=== PATIENT | female | born 1940 | race Caucasian/White ===

== ENCOUNTER 2022-02-16 09:56 | Inpatient (IN) | payer MEDICARE ==
[~2022-02-16] VITALS: Ht 157 cm; Wt 83.9 kg
--- NOTE | 2022-02-16 10:10 | ED Respiratory ---
General Stated Complaint: COUGH; LOW O2 Source: patient, family, EMS Exam Limitations: clinical condition (dementia) History of Present Illness Date Seen by Provider: Feb 16, 2022 Time Seen by Provider: 09:59 Initial Comments 81-year-old female with past medical history of advanced dementia and hypertension coming in via EMS from the urgent care due to concerns for low oxygen. Per her son who essentially adds to the entirety of her history due to her dementia, she started to look short of breath yesterday with developing cough and congestion. No fever that he knows of. She has denied pain anywhere, vomiting, diarrhea, weakness, numbness, or any other concerns. She has been ambulatory. Eating and drinking somewhat less than usual. Denies any heart disease, lung disease, does not smoke. They report her oxygen was around 86 to 88% on room air and they placed her on 2 L oxygen. Otherwise denying any other acute complaints. Allergies and Home Medications Allergies Coded Allergies: No Known Drug Allergies (Unverified , 02/16/22) Patient Home Medication List Home Medication List Reviewed: Yes Review of Systems Review of Systems Constitutional: No fever EENTM: nose congestion Respiratory: cough, short of breath Cardiovascular: No chest pain Gastrointestinal: No abdominal pain Genitourinary: no symptoms reported Musculoskeletal: no symptoms reported Skin: no symptoms reported Psychiatric/Neurological: No Symptoms Reported Hematologic/Lymphatic: No Symptoms Reported Immunological/Allergic: no symptoms reported All Other Systems Reviewed Negative Unless Noted: Yes Past Jhajyik-Iyzyrb-Vpwjgq Hx Patient Social History Tobacco Use?: No Substance use?: No Alcohol Use?: No Past Medical History Surgeries: No Physical Exam Vital Signs - First Documented 02/16/22 09:56 Temp 36.2 Pulse 91 Resp 18 B/P (MAP) 119/62 (81) Pulse Ox 97 O2 Delivery Room Air Capillary Refill : Height: '" Weight: lbs. oz. kg; BMI Method: General Appearance: WD/WN, no apparent distress Eyes: Bilateral Eye Normal Inspection HEENT: PERRL/EOMI, normal ENT inspection, pharynx normal Neck: non-tender, full range of motion, supple, normal inspection Respiratory: chest non-tender, lungs clear, normal breath sounds, no respiratory distress, no accessory muscle use Cardiovascular: regular rate, rhythm, no edema, no murmur Gastrointestinal: normal bowel sounds, non tender, soft; No distended, No guarding, No rebound Extremities: normal range of motion, non-tender, normal inspection, no pedal edema, no calf tenderness, normal capillary refill Neurologic/Psychiatric: no motor/sensory deficits, alert, normal mood/affect, other (Oriented to person alone) Skin: normal color, warm/dry Lymphatic: no adenopathy Progress/Results/Core Measures Suspected Sepsis SIRS Temperature: Pulse: Respiratory Rate: Laboratory Tests 02/16/22 10:01: White Blood Count 11.7H Blood Pressure / Mean: Laboratory Tests 02/16/22 10:01: Creatinine 1.53H, INR Comment 1.1, Platelet Count 110L, Total Bilirubin 0.7 Results/Orders Lab Results Laboratory Tests Test 02/16/22 10:00 02/16/22 10:01 Range/Units Influenza Type A (RT-PCR) Not Detected Not Detecte Influenza Type B (RT-PCR) Not Detected Not Detecte SARS-CoV-2 RNA (RT-PCR) Not Detected Not Detecte White Blood Count 11.7 H 4.3-11.0 10^3/uL Red Blood Count 3.84 L 4.30-5.52 10^6/uL Hemoglobin 11.7 L 13.3-17.7 g/dL Hematocrit 36 L 40-54 % Mean Corpuscular Volume 95 80-99 fL Mean Corpuscular Hemoglobin 31 25-34 pg Mean Corpuscular Hemoglobin Concent 32 32-36 g/dL Red Cell Distribution Width 13.7 10.0-14.5 % Platelet Count 110 L 130-400 10^3/uL Mean Platelet Volume 12.1 9.0-12.2 fL Immature Granulocyte % (Auto) 0 % Neutrophils (%) (Auto) 86 H 42-75 % Lymphocytes (%) (Auto) 7 L 12-44 % Monocytes (%) (Auto) 6 0-12 % Eosinophils (%) (Auto) 0 0-10 % Basophils (%) (Auto) 0 0-10 % Neutrophils # (Auto) 10.1 H 1.8-7.8 10^3/uL Lymphocytes # (Auto) 0.8 L 1.0-4.0 10^3/uL Monocytes # (Auto) 0.6 0.0-1.0 10^3/uL Eosinophils # (Auto) 0.1 0.0-0.3 10^3/uL Basophils # (Auto) 0.0 0.0-0.1 10^3/uL Immature Granulocyte # (Auto) 0.0 0.0-0.1 10^3/uL Neutrophils % (Manual) 82 % Lymphocytes % (Manual) 9 % Monocytes % (Manual) 7 % Band Neutrophils 2 % Platelet Estimate DECREASED Percent Immature Platelet Fraction 13.3 H 0.0-7.6 % Blood Morphology Comment NORMAL Prothrombin Time 14.9 H 12.2-14.7 SEC INR Comment 1.1 0.8-1.4 Activated Partial Thromboplast Time 28 24-35 SEC Sodium Level 142 135-145 MMOL/L Potassium Level 3.9 3.6-5.0 MMOL/L Chloride Level 104 98-107 MMOL/L Carbon Dioxide Level 26 21-32 MMOL/L Anion Gap 12 5-14 MMOL/L Blood Urea Nitrogen 17 7-18 MG/DL Creatinine 1.53 H 0.60-1.30 MG/DL Estimat Glomerular Filtration Rate 45 BUN/Creatinine Ratio 11 Glucose Level 172 H 70-105 MG/DL Calcium Level 9.4 8.5-10.1 MG/DL Corrected Calcium 9.9 8.5-10.1 MG/DL Magnesium Level 2.2 1.6-2.4 MG/DL Total Bilirubin 0.7 0.1-1.0 MG/DL Aspartate Amino Transf (AST/SGOT) 14 5-34 U/L Alanine Aminotransferase (ALT/SGPT) 5 0-55 U/L Alkaline Phosphatase 86 40-136 U/L Troponin I 0.76 *H <0.30 NG/ML Pro-B-Type Natriuretic Peptide 4546.0 H <450.0 PG/ML Total Protein 6.4 6.4-8.2 GM/DL Albumin 3.4 3.2-4.5 GM/DL My Orders Orders - JEMAL IVAN MD Cbc With Automated Diff (02/16/22 10:06) Comprehensive Metabolic Panel (02/16/22 10:06) Magnesium (02/16/22 10:06) Protime With Inr (02/16/22 10:06) Partial Thromboplastin Time (02/16/22 10:06) Influenza A And B By Pcr (02/16/22 10:06) Probnp Fs (02/16/22 10:06) Troponin I Fs (02/16/22 10:06) Chest 1 View Ap/Pa Only (02/16/22 10:06) Covid 19 Inhouse Test (02/16/22 10:06) Ed Iv/Invasive Line Start (02/16/22 10:06) Ekg Tracing (02/16/22 10:06) O2 (02/16/22 10:06) Manual Differential (02/16/22 10:01) Ns Iv 1000 Ml (Sodium Chloride 0.9%) (02/16/22 11:00) Ceftriaxone 1 Gm Pre-Mix (Rocephin 1 Gm (02/16/22 11:00) Doxycycline Hyclate Tablet (Vibramycin T (02/16/22 10:48) Aspirin Chewable Tablet (Baby Aspirin Ch (02/16/22 11:00) Vital Signs/I&O 02/16/22 09:56 Temp 36.2 Pulse 91 Resp 18 B/P (MAP) 119/62 (81) Pulse Ox 97 O2 Delivery Room Air Capillary Refill : Progress Note : Progress Note 81-year-old female with above history coming in due to shortness of breath and cough. Patient was hypoxic on presentation when she was placed on nasal cannula. EKG without acute ischemic changes. An IV was placed and basic labs were obtained and were significant for slightly elevated troponin. Likely is a type II NSTEMI in setting of her hypoxia. Chest x-ray with likely right lower lobe pneumonia. Patient will be admitted to Dr. Esquivel under inpatient status for further evaluation and management. I also contacted Dr. Camacho for consulta tion ECG Initial ECG Impression Date: Feb 16, 2022 Initial ECG Impression Time: 10:07 Initial ECG Rate: 88 Initial ECG Rhythm: Normal Sinus Comment Narrow QRS, normal axis, no significant ST changes Diagnostic Imaging Diagonstic Imaging: Xray (chest) Comments [facility], [place] NAME: WANDER LOPEZ I [facility] REC#: [id number] PT STATUS: REG ER : 1940 PHYSICIAN: JEMAL IVAN MD ADMIT DATE: 02/16/22/ER FS Signed Date of Exam:02/16/22 CHEST 1 VIEW AP/PA ONLY EXAM: CHEST 1 VIEW AP/PA ONLY INDICATION: Shortness of breath. COMPARISON: None. FINDINGS: Normal heart size and central pulmonary vascularity. No pleural effusion or pneumothorax. Airspace opacity in the right lung base. No acute osseous findings. IMPRESSION: Atelectasis or infiltrate in the right lung base laterally. Recommend follow-up to resolution. Dictated by: Dictated on workstation # [id number] Dict: 02/16/22 1026 Trans: 02/16/22 1036 [facility] [id number] Interpreted by: ALMA DELIA PRUETT MD Electronically signed by: ALMA DELIA PRUETT MD 02/16/22 1036 Departure Impression Primary Impression: Pneumonia Qualified Codes: J18.9 - Pneumonia, unspecified organism Additional Impressions: Respiratory failure Qualified Codes: J96.01 - Acute respiratory failure with hypoxia NSTEMI (non-ST elevated myocardial infarction) Disposition: 30 STILL A PATIENT Condition: Stable Admissions Decision to Admit Reason: Admit from ER (General) Decision to Admit/Date: Feb 16, 2022 Time/Decision to Admit Time: 10:40 Transfer Method of Transfer: EMS JEMAL IVAN MD Feb 16, 2022 10:10
[2022-02-16 10:20] LABS: BASOPHILS % (AUTO) 0 % (0-10); EOSINOPHILS # (AUTO) 0.1 10^3/uL (0.0-0.3); EOSINOPHILS % (AUTO) 0 % (0-10); HEMATOCRIT 36 % (40-54); HEMOGLOBIN 11.7 g/dL (13.3-17.7); LYMPHOCYTES # (AUTO) 0.8 10^3/uL (1.0-4.0); LYMPHOCYTES % (AUTO) 7 % (12-44); MEAN CORPUSCULAR HEMOGLOBIN 31 pg (25-34); MEAN CORPUSCULAR HGB CONC 32 g/dL (32-36); MEAN CORPUSCULAR VOLUME 95 fL (80-99); MEAN PLATELET VOLUME 12.1 fL (9.0-12.2); MONOCYTES # (AUTO) 0.6 10^3/uL (0.0-1.0); MONOCYTES % (AUTO) 6 % (0-12); NEUTROPHILS # (AUTO) 10.1 10^3/uL (1.8-7.8); NEUTROPHILS % (AUTO) 86 % (42-75); PLATELET COUNT 110 10^3/uL (130-400); WHITE BLOOD COUNT 11.7 10^3/uL (4.3-11.0)
[2022-02-16 10:29] LABS: INR 1.1 (0.8-1.4); PROTHROMBIN TIME PATIENT 14.9 SEC (12.2-14.7)
--- NOTE | 2022-02-16 10:32 | Diagnostic Imaging Report ---
EXAM: CHEST 1 VIEW AP/PA ONLY INDICATION: Shortness of breath. COMPARISON: None. FINDINGS: Normal heart size and central pulmonary vascularity. No pleural effusion or pneumothorax. Airspace opacity in the right lung base. No acute osseous findings. IMPRESSION: Atelectasis or infiltrate in the right lung base laterally. Recommend follow-up to resolution. Dictated by: Dictated on workstation # [id number]
[2022-02-16 10:40] LABS: BILIRUBIN,TOTAL 0.7 MG/DL (0.1-1.0); CALCIUM 9.4 MG/DL (8.5-10.1); CREATININE SERUM 1.53 MG/DL (0.60-1.30); MAGNESIUM 2.2 MG/DL (1.6-2.4); POTASSIUM 3.9 MMOL/L (3.6-5.0)
[2022-02-16 10:41] LABS: ALBUMIN 3.4 GM/DL (3.2-4.5); TOTAL PROTEIN 6.4 GM/DL (6.4-8.2)
[2022-02-16 10:44] LABS: BAND NEUTROPHILS 2 %; LYMPHOCYTES % (MANUAL) 9 %; MONOCYTES % (MANUAL) 7 %; NEUTROPHILS % (MANUAL) 82 %
[2022-02-16 10:47] LABS: PLATELET ESTIMATE DECREASED; RBC MORPH NORMAL
[2022-02-16] MEDS ORDERED: DOXYCYCLINE 100 MG (VIBRAMYCIN) TABLET PO STA (10:48)
[2022-02-16] MEDS ORDERED: cefTRIAXone 1 GM PRE-MIX 50 ML IV ONE (11:00)
[2022-02-16] MEDS ORDERED: ASPIRIN 81 MG CHEW (CHILDREN'S ASA) PO ONE (11:00)
[2022-02-16] MEDS ORDERED: NS IV 1000 ML 1,000 ML IV SCH (11:00)
[2022-02-16] MEDS ORDERED: ONDANSETRON 4 MG/2 ML (SDV) Z0FRAN IV PRN (13:00)
[2022-02-16] MEDS ORDERED: ACETAMINOPHEN 325 MG TABLET PO PRN (13:00)
[2022-02-16] MEDS ORDERED: AZITHROMYCIN INJECTION 500 MG in NS (IVPB) 250 ML IV ONE (13:00)
[2022-02-16] MEDS ORDERED: polyethylene glycoL POWDER 17 GM (MIRALAX) PACK PO PRN (13:00)
[2022-02-16] MEDS ORDERED: ONDANSETRON 4 MG (ZOFRAN) ORAL DISSOLVE TAB PO PRN (13:00)
[2022-02-16] MEDS ORDERED: ANTACID SUSP 30 ML UDC (MYLANTA) PO PRN (13:00)
[2022-02-16] MEDS ORDERED: diphenhydrAMINE 25 MG TAB (BENADRYL) PO PRN (13:00)
[2022-02-16] MEDS ORDERED: MELATONIN 3 MG TABLET PO PRN (13:00)
[2022-02-16] MEDS ORDERED: morphine INJ 4 MG/ML 1 ML (VIAL/SYRINGE) IV PRN (13:00)
[2022-02-16] MEDS ORDERED: cefTRIAXone 1 GM PRE-MIX 50 ML IV SCH (13:00)
[2022-02-16] MEDS ORDERED: LORazepam INJ 2 MG/ML (ATIVAN) VIAL IVP PRN (13:00)
[2022-02-16] MEDS ORDERED: BISACODYL 10 MG SUPP (DULCOLAX) PR PRN (13:00)
[2022-02-16] MEDS ORDERED: LORazepam 0.5 MG (ATIVAN) TABLET PO PRN (13:00)
[2022-02-16] MEDS ORDERED: diphenhydrAMINE 50 MG/ML INJ (BENADRYL) IVP PRN (13:00)
[2022-02-16] MEDS: NS IV 1000 ML 1,000 ML IV SCH (14:18)
[2022-02-16] MEDS: ENOXAPARIN 80 MG/0.8 ML (LOVENOX) SYR SC SCH (14:18)
[2022-02-16 14:34] VITALS: BP 143/64
--- NOTE | 2022-02-16 14:59 | Consultation-Cardiology ---
HPI-Cardiology Cardiology Consultation: Date of Consultation 02/16/22 Time Seen by a Provider: 13:45 Date of Admission Attending Physician Abhishek Diaz MD Admitting Physician Admitting Physician: Crystal Patel DO Attending Physician: Crystal Patel DO Consulting Physician RUT BURNETTE MD, MA, FACP, FACC, FSCAI, CCDS Physician requesting Card consult: Dr Patel HPI: Chief Complaint: Reason for Card consult: Elevated troponin 81 yo woman who suffers from Alzheimer's and who resides at home with her ibeth benavidez. Her family had noted increase cough and gen malaise and shortness of breath and low oxygen sats (in the 80s). The brought her to the ER. She was diagnosed with pneumonia. She was found to have mildly elevated troponin. Direct communication with her is difficult. She does not report cp or shortness of breath. Family has not noted any syncope or swelling or n/v. Review of Systems-Cardiology Review of Systems Constitutional: other (ROS cannot be obtained from the patient. To the extent it could be obtained from the family is described above under HPI) All Other Systems Reviewed Negative Unless Noted: Yes SSS-Picpcr-Joyafb Hx Patient Social History Have you traveled recently?: No Alcohol Use?: No Pt feels they are or have been: No Past Medical History PMH As described under Assessment. Family Medical History Family Medical History: No [facility] h/o early CAD Allergies and Home Medications Allergies Coded Allergies: No Known Drug Allergies (Unverified , 02/16/22) Patient Home Medication List Home Medication List Reviewed: Yes Physical Exam-Cardiology Physical Exam Vital Signs/I&O 02/16/22 02/16/22 02/16/22 02/16/22 09:56 11:34 13:55 14:34 Temp 36.2 36.2 36.0 Pulse 91 78 76 81 Resp 18 18 16 B/P (MAP) 119/62 (81) 136/62 143/64 (90) Pulse Ox 97 96 90 O2 Delivery Room Air Nasal Cannula Nasal Cannula O2 Flow Rate 2.50 2.50 Capillary Refill : Less Than 3 Seconds Constitutional: No AAO x 3; well-developed, well-nourished HEENT: EOMI; No xanthelasmas are seen Neck: carotid pulses are 2 + bilaterally, with good upstrokes Respiratory: No accessory muscle use; other (fair to good air entry, diminshed at the bases, more so on the R base; R basal coarse crackles) Cardiovascular: regular rate-rhythm, S1 and S2, systolic murmur (soft SAUL at card base) Gastrointestinal: No tender; soft; No guarding, No rebound; audible bowel sounds Extremities: No clubbing, No cyanosis, No significant edema Neurologic/Psychiatric: No oriented x 3; other (moves all limb equally) Skin: warm/dry; No cyanosis, No rash on exposed areas, No ulcerations on exposed areas Lymphatic: no adenopathy Data Review Labs Laboratory Tests 02/16/22 10:00: Influenza Type A (RT-PCR) Not Detected, Influenza Type B (RT-PCR) Not Detected, SARS-CoV-2 RNA (RT-PCR) Not Detected 02/16/22 10:01: White Blood Count 11.7H, Red Blood Count 3.84L, Hemoglobin 11.7L, Hematocrit 36L , Mean Corpuscular Volume 95, Mean Corpuscular Hemoglobin 31, Mean Corpuscular Hemoglobin Concent 32, Red Cell Distribution Width 13.7, Platelet Count 110L, Mean Platelet Volume 12.1, Immature Granulocyte % (Auto) 0, Neutrophils (%) (Auto) 86H, Lymphocytes (%) (Auto) 7L, Monocytes (%) (Auto) 6, Eosinophils (%) (Auto) 0, Basophils (%) (Auto) 0, Neutrophils # (Auto) 10.1H, Lymphocytes # (Auto) 0.8L, Monocytes # (Auto) 0.6, Eosinophils # (Auto) 0.1, Basophils # (Auto) 0.0, Immature Granulocyte # (Auto) 0.0, Neutrophils % (Manual) 82, Lymphocytes % (Manual) 9, Monocytes % (Manual) 7, Band Neutrophils 2, Platelet Estimate DECREASED, Percent Immature Platelet Fraction 13.3H, Blood Morphology Comment NORMAL, Prothrombin Time 14.9H, INR Comment 1.1, Activated Partial Thromboplast Time 28, Sodium Level 142, Potassium Level 3.9, Chloride Level 104, Carbon Dioxide Level 26, Anion Gap 12, Blood Urea Nitrogen 17, Creatinine 1.53H, Estimat Glomerular Filtration Rate 45, BUN/Creatinine Ratio 11, Glucose Level 172H, Calcium Level 9.4, Corrected Calcium 9.9, Magnesium Level 2.2, Total Bilirubin 0.7, Aspartate Amino Transf (AST/SGOT) 14, Alanine Aminotransferase (ALT/SGPT) 5, Alkaline Phosphatase 86, Troponin I 0.76*H, Pro-B-Type Natriuretic Peptide 4546.0H, Total Protein 6.4, Albumin 3.4 Laboratory Tests 02/16/22 10:01 A/P-Cardiology Assessment/Admission Diagnosis Ac resp failure and hypoxia due to RLL Mild troponin elevation due to type 2 NJ due to hypoxia Alzheimer's dementia Discussion and Recomendations * Supple oxygen * Add ASA and BB to regimen * Echo * Monitor labs * Dr Patel managing pneumonia and resp failure RUT BURNETTE MD FACP [facility] CCDS Feb 16, 2022 14:59
--- NOTE | 2022-02-16 15:47 | History & Physical-Hospitalist ---
History of Present Illness HPI/Chief Complaint CC: PNA with NSTEMI HPI: This is an 81yoWF with severe dementia who presents to [facility] following ER visit from [facility] and found to have PNA and NSTEMI. Dr Camacho consulted. Patient has severe dementia and cannot even converse and oriented x 0. Living will discussed with daughter at bedside and she called her brother who is "in charge of all of that" and he confirmed she remains a full code even though she has end stage dementia. Source: family, RN/MD Exam Limitations: clinical condition Date Seen 02/16/22 Time Seen by a Provider: 17:00 Attending Physician Abhishek Diaz MD PCP Admitting Physician: Crystal Patel DO Attending Physician: Crystal Patel DO Referring Physician Date of Admission Feb 16, 2022 at 12:45 Home Medications & Allergies Home Medications Reviewed patient Home Medication Reconciliation performed by pharmacy medication reconciliations gyroscopic engineering technician and/or nursing. Patients Allergies have been reviewed. Allergies Allergies Coded Allergies No Known Drug Allergies (Lakkywhbcq70/25/22) Past Bnyvavf-Frswvm-Zljljz Hx Patient Social History Marrital Status: single Employed/Student: retired Tobacco Use?: No Smoking Status: Unknown if Ever Smoked Use of E-Cig and/or Vaping dev: No Substance use?: No Alcohol Use?: No Pt feels they are or have been: No Immunizations Up To Date First/Initial COVID19 Vaccinat: Yes Current Status Advance Directives: No Communicates: Verbally Primary Language: Bahamian Preferred Spoken Language: Bahamian Is interpretation needed?: No Sensory deficits: Vision impairment, Hearing impairment Past Medical History Hypertension Dementia Review of Systems Constitutional: see HPI Physical Exam Physical Exam Vital Signs Vital Signs - First Documented 02/16/22 02/16/22 09:56 11:34 Temp 36.2 Pulse 91 Resp 18 B/P (MAP) 119/62 (81) Pulse Ox 97 O2 Delivery Room Air O2 Flow Rate 2.50 Capillary Refill : Less Than 3 Seconds Height, Weight, BMI Height: '" Weight: lbs. oz. kg; 34.03 BMI Method: General Appearance: No Apparent Distress, Chronically ill Eyes: Right Eye Normal Inspection, Right Eye PERRL HEENT: PERRL/EOMI, Normal ENT Inspection, Pharynx Normal, Moist Mucous Membra tere Neck: Full Range of Motion, Normal Inspection, Non Tender Respiratory: Chest Non Tender, Lungs Clear, No Accessory Muscle Use, No Respiratory Distress, Crackles, Decreased Breath Sounds Cardiovascular: Regular Rate, Rhythm, No Edema, No Gallop, No JVD, No Murmur, Normal Peripheral Pulses Gastrointestinal: Normal Bowel Sounds, No Organomegaly, No Pulsatile Mass, Non Tender, Soft Back: Normal Inspection, No CVA Tenderness, No Vertebral Tenderness Extremity: Normal Capillary Refill, Normal Inspection, Normal Range of Motion, Non Tender, No Calf Tenderness, No Pedal Edema Neurologic/Psychiatric: Alert, No Motor/Sensory Deficits, Depressed Affect, Disoriented Skin: Normal Color, Warm/Dry Lymphatic: No Adenopathy Results Results/Procedures Labs Laboratory Tests 02/16/22 10:01 Patient resulted labs reviewed. Assessment/Plan Admission Diagnosis Assessment: Acute respiratory failure PNA NSTEMI Dementia HTN Plan: IV abx Nebs O2 Full code Admission Status: Inpatient Order (span 2 midnights) Reason for Inpatient Admission: PNA NSTEMI Diagnosis/Problems Diagnosis/Problems (1) Pneumonia Status: Acute Qualifiers: Pneumonia type: due to unspecified organism Laterality: right Lung location: lower lobe of lung Qualified Codes: J18.9 - Pneumonia, unspecified organism (2) NSTEMI (non-ST elevated myocardial infarction) Status: Acute (3) Respiratory failure Status: Acute Qualifiers: Chronicity: acute Respiratory failure complication: hypoxia Qualified Codes: J96.01 - Acute respiratory failure with hypoxia CRYSTAL PATEL DO Feb 16, 2022 15:47
[2022-02-16] MEDS ORDERED: MEMA10TA57 PO (15:59)
[2022-02-16] MEDS ORDERED: DEXT15SY PO (15:59)
[2022-02-16] MEDS ORDERED: OMEP20CA18 PO (15:59)
[2022-02-16] MEDS ORDERED: DONE10TA41 PO (15:59)
[2022-02-16] MEDS ORDERED: LORA10TA7 PO (15:59)
[2022-02-16] MEDS ORDERED: CALC-823 PO (15:59)
[2022-02-16 16:08] VITALS: BP 150/67
[2022-02-16 19:50] VITALS: BP 130/57
[2022-02-16] MEDS: DOCUSATE SODIUM 100 MG (COLACE) CAP PO SCH (21:00)
[2022-02-17] VITALS (7 sets, daily range): BP systolic 100–146; BP diastolic 57–77
[2022-02-17] MEDS: NS IV 1000 ML 1,000 ML IV SCH ×2 (00:07→05:37)
[2022-02-17] MEDS: ZIPRASIDONE 20 MG INJ (GEODON) VIAL IM PRN ×2 (03:36→05:04)
[2022-02-17] MEDS: WATER (STERILE) FOR INJ 10 ML BTL INJ SCH ×2 (03:37→05:04)
[2022-02-17 05:43] LABS: EOSINOPHILS # (AUTO) 0.1 10^3/uL (0.0-0.3); EOSINOPHILS % (AUTO) 1 % (0-10); HEMOGLOBIN 9.7 g/dL (11.5-16.0); MEAN CORPUSCULAR VOLUME 98 fL (80-99)
--- NOTE | 2022-02-17 05:43 | Progress Note - Hospitalist ---
Subjective HPI/CC On Admission Date Seen by Provider: Feb 17, 2022 Time Seen by Provider: 11:00 CC: PNA with NSTEMI HPI: This is an 81yoWF with severe dementia who presents to [facility] following ER visit from [facility] and found to have PNA and NSTEMI. Dr Camacho consulted. Patient has severe dementia and cannot even converse and oriented x 0. Living will discussed with daughter at bedside and she called her brother who is "in charge of all of that" and he confirmed she remains a full code even though she has end stage dementia. Subjective/Events-last exam Patient doing well Much improved Son at bedside Patient able to answer simple questions Labs reviewed Echo ordered Review of Systems General: Fatigue, Malaise Objective Exam Vital Signs Vital Signs Date Time Temp Pulse Resp B/P (MAP) Pulse Ox O2 Delivery O2 Flow Rate FiO2 02/17/22 13:00 65 02/17/22 11:51 36.3 16 100/62 (75) 97 Nasal Cannula 3.00 Capillary Refill : Less Than 3 Seconds General Appearance: No Apparent Distress, WD/WN, Chronically ill Respiratory: Lungs Clear, Normal Breath Sounds, Decreased Breath Sounds Cardiovascular: Regular Rate, Rhythm Neurologic/Psychiatric: Alert, Disoriented Results/Procedures Lab Laboratory Tests 02/17/22 05:15 Patient resulted labs reviewed. Assessment/Plan Assessment and Plan Assess & Plan/Chief Complaint Assessment: Acute respiratory failure PNA NSTEMI Dementia HTN Plan: IV abx Nebs O2 Full code Hep-Lock IV fluid Diagnosis/Problems Diagnosis/Problems (1) Pneumonia Status: Acute Qualifiers: Pneumonia type: due to unspecified organism Laterality: right Lung location: lower lobe of lung Qualified Codes: J18.9 - Pneumonia, unspecified organism (2) NSTEMI (non-ST elevated myocardial infarction) Status: Acute (3) Respiratory failure Status: Acute Qualifiers: Chronicity: acute Respiratory failure complication: hypoxia Qualified Codes: J96.01 - Acute respiratory failure with hypoxia BHAVNA RICE DO Feb 17, 2022 05:43
[2022-02-17 05:45] LABS: BASOPHILS % (AUTO) 0 % (0-10); HEMATOCRIT 31 % (35-52); LYMPHOCYTES % (AUTO) 12 % (12-44); MEAN CORPUSCULAR HEMOGLOBIN 31 pg (25-34); MEAN CORPUSCULAR HGB CONC 32 g/dL (32-36); MEAN PLATELET VOLUME 12.8 fL (9.0-12.2); MONOCYTES # (AUTO) 0.5 10^3/uL (0.0-1.0); MONOCYTES % (AUTO) 5 % (0-12); NEUTROPHILS # (AUTO) 7.1 10^3/uL (1.8-7.8); NEUTROPHILS % (AUTO) 81 % (42-75); WHITE BLOOD COUNT 8.7 10^3/uL (4.3-11.0)
[2022-02-17 05:57] LABS: PLATELET COUNT 102 10^3/uL (130-400)
[2022-02-17 06:03] LABS: ALANINE AMINOTRANSFERASE < 6 U/L (0-55); ALBUMIN 2.8 GM/DL (3.2-4.5); ALKALINE PHOSPHATASE 62 U/L (40-136); BILIRUBIN,TOTAL 0.4 MG/DL (0.1-1.0); BUN/CREATININE RATIO 12; CALCIUM 8.4 MG/DL (8.5-10.1); CARBON DIOXIDE 21 MMOL/L (21-32); CHLORIDE 110 MMOL/L (98-107); CHOLESTEROL 153 MG/DL (< 200); CREATININE SERUM 1.14 MG/DL (0.60-1.30); GFR ESTIMATED 48; GLUCOSE 98 MG/DL (70-105); HDL CHOLESTEROL 44 MG/DL (40-60); POTASSIUM 3.4 MMOL/L (3.6-5.0); SODIUM 144 MMOL/L (135-145); TOTAL PROTEIN 5.3 GM/DL (6.4-8.2); TRIGLYCERIDES 100 MG/DL (<150); VLDL CHOLESTEROL 20 MG/DL (5-40)
[2022-02-17] MEDS: DOCUSATE SODIUM 100 MG (COLACE) CAP PO SCH ×2 (07:57→20:15)
[2022-02-17] MEDS: ASPIRIN 81 MG CHEW (CHILDREN'S ASA) PO SCH (07:57)
[2022-02-17] MEDS: KCL 10 MEQ TAB (MICRO K) PO SCH (08:45)
[2022-02-17] MEDS: cefTRIAXone 1 GM PRE-MIX 50 ML IV SCH (12:24)
--- NOTE | 2022-02-17 13:54 | Physical Therapy Evaluation ---
PT Evaluation-General Medical Diagnosis Admission Date Feb 16, 2022 at 12:45 Medical Diagnosis: PNA Onset Date: Feb 17, 2022 Therapy Diagnosis Therapy Diagnosis: debility Precautions Precautions/Isolations: Fall Prevention, Standard Precautions Weight Bear Status Right Lower Extremity: Right Full Weight Bearing Left Lower Extremity: Left Full Weight Bearing Referral Physician: Dr. Patel Reason for Referral: Evaluation/Treatment Medical History Pertinent Medical History: Dementia Current History Presented to ER with PNA; pt. has severe dementia. Social History Home: Single Level Current Living Status: Spouse Entry Into Home: Level Entry Prior Prior Level of Function SCALE: Activities may be completed with or without assistive devices. 4-Rxcfukbpzj-tcdqpwq completes the activity by him/herself with no assistance from a helper. 5-Set-up or Clean-up Assistance-helper sets up or cleans up; patient completes activity. [place] assists only prior to or following the activity. 4-Supervision or Touching Assistance-helper provides verbal cues and/or touching/steadying and/or contact guard assistance as patient completes activity. Assistance may be provided throughout the activity or intermittently. 3-Partial/Moderate Assistance-helper does LESS THAN HALF the effort. [place] lifts, holds or supports trunk or limbs, but provides less than half the effort. 2-Substantial/Maximal Assistance-helper does MORE THAN HALF the effort. [place] lifts or holds trunk or limbs and provides more than half the effort. 3-Bqwxxpojh-zlvfdq does ALL the effort. Patient does none of the effort to complete the activity. Or, the assistance of 2 or more helpers is required for the patient to complete the activity. If activity was not attempted, code reason: 7-Patient Refused. 9-Not Applicable-not attempted and the patient did not perform the activity before the current illness, exacerbation or injury. 10-Not Attempted due to Environmental Limitations-(lack of equipment, weather restraints, etc.). 88-Not Attempted due to Medical Conditions or Safety Concerns. Bed Mobility: 6 Transfers (B,C,W/C): 4 Gait: 4 Indoor Mobility (Ambulation): Needed Some Help Prior Devices Use: Walker son states patient did short-distance ambulation in the home. PT Evaluation-Current Subjective Pt. agrees to PT but unable to give accurate answers to questions, son assists with history. Objective Patient Orientation: Confused ROM/Strength ROM Upper Extremities WFL ROM Lower Extremities WFL Strength Upper Extremities WFL Strength Lower Extremities Grossly 3/5 Integumentary/Posture Integumentary see nursing notes Bladder Incontinence: Aparicio Cath Neuromuscular (Tone, Coordination, Reflexes) diminished Sensory Vision: Unable to Assess Hearing: Functional Transfers Roll Left to Right (QC): 2 Lying to Sitting/Side of Bed(Q: 1 Sit to Stand (QC): 1 Chair/Abv-iu-Pgmwo Xfer(QC): 1 Gait Does the Patient Walk?: Yes Mode of Locomotion: Walk Anticipated Mode of Locomotion: Walk Comments/Gait Description pt. unsafe/unable to ambulate at this time. Balance Sitting Static: Poor Sitting Dynamic: Poor Standing Static: Poor Standing Dynamic: Poor Assessment/Needs Pt. is an 81 y.o. female with severe dementia and debility. She had difficulty following commands and is currently max A x 2 for all mobility. Pt. would benefit from skilled PT to improve strength and mobility for possible return home with son and spouse. Rehab Potential: Poor PT Short Term Goals Short Term Goals Time Frame: Feb 24, 2022 Roll Left & Right: 4 Sit to lyin Lying to sitting on side of be: 4 Sit to stand: 4 Chair/lit-do-bewiz transfer: 4 Walk 10 feet: 3 PT Plan Problem List Problem List: Activity Tolerance, Functional Strength, Safety, Balance, Gait, Transfer, Bed Mobility, ROM Treatment/Plan Treatment Plan: Continue Plan of Care Treatment Plan: Bed Mobility, Concurrent Therapy, Education, Functional Activ ity Colt, Functional Strength, Gait, Safety, Therapeutic Exercise, Transfers Treatment Duration: Feb 24, 2022 Frequency: 6 times per week Estimated Hrs Per Day: .25 hour per day Patient and/or Family Agrees t: Yes Time Time In: 1200 Time Out: 1215 DATE: Feb 17, 2022 Total Billed Treatment Time: 15 Total Billed Treatment 1, [facility] 15' AD [facility] PT Feb 17, 2022 13:54
--- NOTE | 2022-02-17 14:16 | Progress Note - Cardiology ---
Cardiology SOAP Progress Note Subjective: Her son is by her beside Pt has not been reporting any symptoms Direct communication with the patient is not possible due her dementia Objective: I&O/Vital Signs 02/17/22 02/17/22 02/17/22 02/17/22 03:12 07:00 08:00 08:40 Temp 36.6 36.3 Pulse 67 69 70 Resp 16 16 B/P (MAP) 120/72 (88) 136/69 (91) Pulse Ox 97 97 O2 Delivery Nasal Cannula Nasal Cannula Room Air O2 Flow Rate 3.00 3.00 02/17/22 02/17/22 11:51 13:00 Temp 36.3 Pulse 63 65 Resp 16 B/P (MAP) 100/62 (75) Pulse Ox 97 O2 Delivery Nasal Cannula O2 Flow Rate 3.00 02/17/22 00:00 Intake Total 835 ml Balance 835 ml Constitutional: No AAO x 3; well-developed, well-nourished Respiratory: No accessory muscle use; other (fair to good air entry, diminshed at the bases, more so on the R base; R basal coarse crackles) Cardiovascular: regular rate-rhythm, S1 and S2, systolic murmur (soft SAUL at card base) Gastrointestional: No tender; soft; No guarding, No rebound; audible bowel sounds Extremities: No clubbing, No cyanosis, No significant edema Neurologic/Psychiatric: No oriented x 3; other (moves all limb equally) Skin: warm/dry; No cyanosis, No rash on exposed areas, No ulcerations on exposed areas Results/Procedures: Labs Laboratory Tests 02/17/22 05:15: White Blood Count 8.7, Red Blood Count 3.16L, Hemoglobin 9.7L, Hematocrit 31L, Mean Corpuscular Volume 98, Mean Corpuscular Hemoglobin 31, Mean Corpuscular Hemoglobin Concent 32, Red Cell Distribution Width 13.5, Platelet Count 102L, Mean Platelet Volume 12.8H, Immature Granulocyte % (Auto) 0, Neutrophils (%) (Auto) 81H, Lymphocytes (%) (Auto) 12, Monocytes (%) (Auto) 5, Eosinophils (%) (Auto) 1, Basophils (%) (Auto) 0, Neutrophils # (Auto) 7.1, Lymphocytes # (Auto) 1.0, Monocytes # (Auto) 0.5, Eosinophils # (Auto) 0.1, Basophils # (Auto) 0.0, Immature Granulocyte # (Auto) 0.0, Percent Immature Platelet Fraction 9.8H, Sodium Level 144, Potassium Level 3.4L, Chloride Level 110H, Carbon Dioxide Level 21, Anion Gap 13, Blood Urea Nitrogen 14, Creatinine 1.14, Estimat Glomerular Filtration Rate 48, BUN/Creatinine Ratio 12, Glucose Level 98, Calcium Level 8.4L, Corrected Calcium 9.4, Total Bilirubin 0.4, Aspartate Amino Transf (AST/SGOT) 13, Alanine Aminotransferase (ALT/SGPT) < 6, Alkaline Phosphatase 62, Total Protein 5.3L, Albumin 2.8L, Triglycerides Level 100, Cholesterol Level 153, LDL Cholesterol Direct 86, VLDL Cholesterol 20, HDL Cholesterol 44 Laboratory Tests 02/16/22 10:01 02/17/22 05:15 A/P: Assessment: Ac resp failure and hypoxia due to RLL - echo on 02/17/22: LVEF 55-60%, mild AI Mild troponin elevation due to type 2 [place] due to hypoxia Alzheimer's dementia Plan: * Supple oxygen * Monitor labs * Dr Patel managing pneumonia and resp failure RUT BURNETTE MD FACP FAC CCDS Feb 17, 2022 14:16
[2022-02-17] MEDS: ENOXAPARIN 80 MG/0.8 ML (LOVENOX) SYR SC SCH (14:39)
[2022-02-18 03:18] VITALS: BP 123/76
--- NOTE | 2022-02-18 06:01 | Progress Note - Hospitalist ---
Subjective HPI/CC On Admission Date Seen by Provider: Feb 18, 2022 Time Seen by Provider: 11:00 CC: PNA with NSTEMI HPI: This is an 81yoWF with severe dementia who presents to [facility] following ER visit from [facility] and found to have PNA and NSTEMI. Dr Camacho consulted. Patient has severe dementia and cannot even converse and oriented x 0. Living will discussed with daughter at bedside and she called her brother who is "in charge of all of that" and he confirmed she remains a full code even though she has end stage dementia. Subjective/Events-last exam Patient doing much better Son at bedside Hallucinated last night Tolerating IV antibiotics Review of Systems General: Fatigue Neurological: Confusion Objective Exam Vital Signs Vital Signs Date Time Temp Pulse Resp B/P (MAP) Pulse Ox O2 Delivery O2 Flow Rate FiO2 02/18/22 13:00 67 02/18/22 11:52 36.5 16 107/66 (80) 96 02/18/22 08:03 Nasal Cannula 3.00 Capillary Refill : Less Than 3 Seconds General Appearance: No Apparent Distress, WD/WN, Chronically ill Respiratory: Lungs Clear, Normal Breath Sounds, Decreased Breath Sounds Cardiovascular: Regular Rate, Rhythm Neurologic/Psychiatric: Alert, Oriented x3, No Motor/Sensory Deficits, Normal Mood/Affect Results/Procedures Lab Laboratory Tests 02/18/22 05:35 Patient resulted labs reviewed. Assessment/Plan Assessment and Plan Assess & Plan/Chief Complaint Assessment: Acute respiratory failure PNA NSTEMI Dementia HTN Plan: IV abx Nebs O2 Full code Hep-Lock IV fluid PT and OT tomorrow Diagnosis/Problems Diagnosis/Problems (1) Pneumonia Status: Acute Qualifiers: Pneumonia type: due to unspecified organism Laterality: right Lung location: lower lobe of lung Qualified Codes: J18.9 - Pneumonia, unspecified organism (2) NSTEMI (non-ST elevated myocardial infarction) Status: Acute (3) Respiratory failure Status: Acute Qualifiers: Chronicity: acute Respiratory failure complication: hypoxia Qualified Codes: J96.01 - Acute respiratory failure with hypoxia BHAVNA RICE DO Feb 18, 2022 06:01
[2022-02-18] MEDS: KCL 10 MEQ TAB (MICRO K) PO SCH (06:08)
[2022-02-18 06:15] LABS: BASOPHILS % (AUTO) 0 % (0-10); EOSINOPHILS # (AUTO) 0.1 10^3/uL (0.0-0.3); EOSINOPHILS % (AUTO) 1 % (0-10); HEMATOCRIT 31 % (35-52); HEMOGLOBIN 9.6 g/dL (11.5-16.0); LYMPHOCYTES # (AUTO) 0.9 10^3/uL (1.0-4.0); LYMPHOCYTES % (AUTO) 12 % (12-44); MEAN CORPUSCULAR HEMOGLOBIN 31 pg (25-34); MEAN CORPUSCULAR HGB CONC 31 g/dL (32-36); MEAN CORPUSCULAR VOLUME 97 fL (80-99); MEAN PLATELET VOLUME 12.9 fL (9.0-12.2); MONOCYTES # (AUTO) 0.5 10^3/uL (0.0-1.0); MONOCYTES % (AUTO) 6 % (0-12); NEUTROPHILS # (AUTO) 6.3 10^3/uL (1.8-7.8); NEUTROPHILS % (AUTO) 80 % (42-75); PLATELET COUNT 133 10^3/uL (130-400); WHITE BLOOD COUNT 7.8 10^3/uL (4.3-11.0)
[2022-02-18 06:43] LABS: ALANINE AMINOTRANSFERASE < 6 U/L (0-55); ALBUMIN 2.9 GM/DL (3.2-4.5); ALKALINE PHOSPHATASE 59 U/L (40-136); BILIRUBIN,TOTAL 0.3 MG/DL (0.1-1.0); BUN/CREATININE RATIO 12; CALCIUM 8.6 MG/DL (8.5-10.1); CARBON DIOXIDE 21 MMOL/L (21-32); CHLORIDE 107 MMOL/L (98-107); CREATININE SERUM 1.11 MG/DL (0.60-1.30); GFR ESTIMATED 50; GLUCOSE 87 MG/DL (70-105); POTASSIUM 3.5 MMOL/L (3.6-5.0); SODIUM 139 MMOL/L (135-145); TOTAL PROTEIN 5.3 GM/DL (6.4-8.2)
[2022-02-18 08:00] VITALS: BP 130/76
[2022-02-18] MEDS: DOCUSATE SODIUM 100 MG (COLACE) CAP PO SCH ×2 (08:29→19:26)
[2022-02-18] MEDS: ASPIRIN 81 MG CHEW (CHILDREN'S ASA) PO SCH (08:29)
[2022-02-18] MEDS: AZITHROMYCIN 250 MG TAB (ZITHROMAX) PO SCH (08:29)
[2022-02-18 11:52] VITALS: BP 107/66
[2022-02-18] MEDS: ENOXAPARIN 80 MG/0.8 ML (LOVENOX) SYR SC SCH (11:54)
[2022-02-18] MEDS: cefTRIAXone 1 GM PRE-MIX 50 ML IV SCH (11:54)
--- NOTE | 2022-02-18 15:17 | Progress Note - Cardiology ---
Cardiology SOAP Progress Note Subjective: Her son is by her bedside She has not expressed any cp or shortness of breath or other symptoms Objective: I&O/Vital Signs 02/18/22 02/18/22 02/18/22 02/18/22 03:18 07:00 08:00 08:03 Temp 36.7 36.8 Pulse 67 56 72 Resp 16 16 B/P (MAP) 123/76 (92) 130/76 (94) Pulse Ox 96 100 O2 Delivery Nasal Cannula Nasal Cannula O2 Flow Rate 3.00 3.00 02/18/22 02/18/22 11:52 13:00 Temp 36.5 Pulse 65 67 Resp 16 B/P (MAP) 107/66 (80) Pulse Ox 96 02/18/22 00:00 Intake Total 1350 ml Balance 1350 ml Constitutional: No AAO x 3; well-developed, well-nourished Respiratory: No accessory muscle use; other (fair to good air entry, diminshed at the bases, more so on the R base; R basal coarse crackles) Cardiovascular: regular rate-rhythm, S1 and S2, systolic murmur (soft SAUL at card base) Gastrointestional: No tender; soft; No guarding, No rebound; audible bowel sounds Extremities: No clubbing, No cyanosis, No significant edema Neurologic/Psychiatric: No oriented x 3; other (moves all limb equally) Skin: warm/dry; No cyanosis, No rash on exposed areas, No ulcerations on exposed areas Results/Procedures: Labs Laboratory Tests 02/18/22 05:35: White Blood Count 7.8, Red Blood Count 3.15L, Hemoglobin 9.6L, Hematocrit 31L, Mean Corpuscular Volume 97, Mean Corpuscular Hemoglobin 31, Mean Corpuscular Hemoglobin Concent 31L, Red Cell Distribution Width 13.4, Platelet Count 133, Mean Platelet Volume 12.9H, Immature Granulocyte % (Auto) 0, Neutrophils (%) (Auto) 80H, Lymphocytes (%) (Auto) 12, Monocytes (%) (Auto) 6, Eosinophils (%) (Auto) 1, Basophils (%) (Auto) 0, Neutrophils # (Auto) 6.3, Lymphocytes # (Auto) 0.9L, Monocytes # (Auto) 0.5, Eosinophils # (Auto) 0.1, Basophils # (Auto) 0.0, Immature Granulocyte # (Auto) 0.0, Sodium Level 139, Potassium Level 3.5L, Chloride Level 107, Carbon Dioxide Level 21, Anion Gap 11, Blood Urea Nitrogen 13, Creatinine 1.11, Estimat Glomerular Filtration Rate 50, BUN/Creatinine Ratio 12, Glucose Level 87, Calcium Level 8.6, Corrected Calcium 9.5, Total Bilirubin 0.3, Aspartate Amino Transf (AST/SGOT) 13, Alanine Aminotransferase (ALT/SGPT) < 6, Alkaline Phosphatase 59, Total Protein 5.3L, Albumin 2.9L Laboratory Tests 02/17/22 05:15 02/18/22 05:35 A/P: Assessment: Ac resp failure and hypoxia due to RLL - echo on 02/17/22: LVEF 55-60%, mild AI Mild troponin elevation due to type 2 [place] due to hypoxia Alzheimer's dementia Hypokalemia Plan: * Supple oxygen * Replenish K * Monitor labs * I discussed her CV issues and her cardiac w/u with her son and answered his CV-related questions RUT BURNETTE MD FACP FAC CCDS Feb 18, 2022 15:17
[2022-02-18 16:45] VITALS: BP 116/74
[2022-02-18 19:30] VITALS: BP 127/60
[2022-02-18 23:46] VITALS: BP 128/78
[2022-02-19 03:25] VITALS: BP 140/84
[2022-02-19 05:50] LABS: BASOPHILS % (AUTO) 0 % (0-10); EOSINOPHILS # (AUTO) 0.1 10^3/uL (0.0-0.3); EOSINOPHILS % (AUTO) 2 % (0-10); HEMATOCRIT 31 % (35-52); HEMOGLOBIN 9.6 g/dL (11.5-16.0); LYMPHOCYTES # (AUTO) 0.8 10^3/uL (1.0-4.0); LYMPHOCYTES % (AUTO) 11 % (12-44); MEAN CORPUSCULAR HEMOGLOBIN 31 pg (25-34); MEAN CORPUSCULAR HGB CONC 32 g/dL (32-36); MEAN CORPUSCULAR VOLUME 97 fL (80-99); MONOCYTES # (AUTO) 0.4 10^3/uL (0.0-1.0); MONOCYTES % (AUTO) 6 % (0-12); NEUTROPHILS # (AUTO) 5.4 10^3/uL (1.8-7.8); NEUTROPHILS % (AUTO) 80 % (42-75); PLATELET COUNT 150 10^3/uL (130-400); WHITE BLOOD COUNT 6.7 10^3/uL (4.3-11.0)
[2022-02-19 06:19] LABS: ALBUMIN 2.7 GM/DL (3.2-4.5); BILIRUBIN,TOTAL 0.2 MG/DL (0.1-1.0); CALCIUM 8.7 MG/DL (8.5-10.1); CREATININE SERUM 0.99 MG/DL (0.60-1.30); POTASSIUM 3.7 MMOL/L (3.6-5.0); TOTAL PROTEIN 5.1 GM/DL (6.4-8.2)
[2022-02-19 08:00] VITALS: BP 168/79
[2022-02-19] MEDS: DOCUSATE SODIUM 100 MG (COLACE) CAP PO SCH (08:34)
[2022-02-19] MEDS: KCL 10 MEQ TAB (MICRO K) PO SCH (08:34)
[2022-02-19] MEDS: ASPIRIN 81 MG CHEW (CHILDREN'S ASA) PO SCH (08:34)
[2022-02-19] MEDS: AZITHROMYCIN 250 MG TAB (ZITHROMAX) PO SCH (08:34)
--- NOTE | 2022-02-19 09:30 | Progress Note - Cardiology ---
Cardiology SOAP Progress Note Subjective: Sitting up on the side of the bed No c/o CP or SOB Family x 1 at the bedside Objective: I&O/Vital Signs 02/18/22 02/19/22 02/19/22 02/19/22 23:46 01:00 03:25 07:22 Temp 36.1 36.6 Pulse 76 57 62 83 Resp 16 16 B/P (MAP) 128/78 (95) 140/84 (102) Pulse Ox 98 97 O2 Delivery Nasal Cannula Nasal Cannula O2 Flow Rate 3.00 3.00 02/19/22 02/19/22 08:00 08:00 Temp 35.6 Pulse 72 Resp 20 B/P (MAP) 168/79 (108) Pulse Ox 93 O2 Delivery Nasal Cannula Nasal Cannula O2 Flow Rate 3.00 2.00 02/19/22 00:00 Intake Total 610 ml Balance 610 ml Constitutional: No AAO x 3; well-developed, well-nourished Respiratory: No accessory muscle use; other (fair to good air entry, diminshed at the bases, more so on the R base; R basal coarse crackles) Cardiovascular: regular rate-rhythm, S1 and S2, systolic murmur (soft SAUL at card base) Gastrointestional: No tender; soft; No guarding, No rebound; audible bowel sounds Extremities: No clubbing, No cyanosis, No significant edema Neurologic/Psychiatric: No oriented x 3; other (moves all limb equally) Skin: warm/dry; No cyanosis, No rash on exposed areas, No ulcerations on exposed areas Results/Procedures: Labs Laboratory Tests 02/18/22 23:29: Glucometer 85 02/19/22 05:05: White Blood Count 6.7, Red Blood Count 3.15L, Hemoglobin 9.6L, Hematocrit 31L, Mean Corpuscular Volume 97, Mean Corpuscular Hemoglobin 31, Mean Corpuscular Hemoglobin Concent 32, Red Cell Distribution Width 13.4, Platelet Count 150, Mean Platelet Volume 13.0H, Immature Granulocyte % (Auto) 0, Neutrophils (%) (Auto) 80H, Lymphocytes (%) (Auto) 11L, Monocytes (%) (Auto) 6, Eosinophils (%) (Auto) 2, Basophils (%) (Auto) 0, Neutrophils # (Auto) 5.4, Lymphocytes # (Auto) 0.8L, Monocytes # (Auto) 0.4, Eosinophils # (Auto) 0.1, Basophils # (Auto) 0.0, Immature Granulocyte # (Auto) 0.0, Sodium Level 138, Potassium Level 3.7, Chloride Level 107, Carbon Dioxide Level 21, Anion Gap 10, Blood Urea Nitrogen 10, Creatinine 0.99, Estimat Glomerular Filtration Rate 57, BUN/Creatinine Ratio 10, Glucose Level 93, Calcium Level 8.7, Corrected Calcium 9.7, Total Bilirubin 0.2, Aspartate Amino Transf (AST/SGOT) 10, Alanine Aminotransferase (ALT/SGPT) 6, Alkaline Phosphatase 53, Total Protein 5.1L, Albumin 2.7L Laboratory Tests 02/18/22 05:35 02/19/22 05:05 A/P: Assessment: Ac resp failure and hypoxia due to RLL pneumonia - echo on 02/17/22: LVEF 55-60%, mild AI Mild troponin elevation due to type 2 [place] due to hypoxia Alzheimer's dementia Hypokalemia - resolved Plan: * Supplemental oxygen * Management of pneumonia per medical services * Monitor labs - replace electrolytes as indicated CATHERINE HUMPHREYS [facility] Feb 19, 2022 09:30
[2022-02-19] MEDS ORDERED: ENOXAPARIN 80 MG/0.8 ML (LOVENOX) SYR SC SCH (10:00)
--- NOTE | 2022-02-19 10:23 | Physical Therapy Daily Note ---
PT Daily Note-Current Subjective Patient's son speaks for patient. Family agrees to PT. Pain Section J - Health Conditions 1. Rarely or not at all 2. Occasionally 3. Frequently 4. Almost constantly 8. Unable to answer Pain Effect on Sleep: 8 Pain Interference with Therapy: 8 Pain Interference w/Day-to-Day: 8 Mental Status Patient Orientation: Confused Attachments: Oxygen Transfers SCALE: Activities may be completed with or without assistive devices. 2-[place]-ndaimwa completes the activity by him/herself with no assistance from a helper. 5-Set-up or Clean-up Assistance-helper sets up or cleans up; patient completes activity. [place] assists only prior to or following the activity. 4-Supervision or Touching Assistance-helper provides verbal cues and/or touching/steadying and/or contact guard assistance as patient completes activity. Assistance may be provided throughout the activity or intermittently. 3-Partial/Moderate Assistance-helper does LESS THAN HALF the effort. [place] lifts, holds or supports trunk or limbs, but provides less than half the effort. 2-Substantial/Maximal Assistance-helper does MORE THAN HALF the effort. [place] lifts or holds trunk or limbs and provides more than half the effort. 5-Ntaqeayxv-qedtjl does ALL the effort. Patient does none of the effort to complete the activity. Or, the assistance of 2 or more helpers is required for the patient to complete the activity. If activity was not attempted, code reason: 7-Patient Refused. 9-Not Applicable-not attempted and the patient did not perform the activity before the current illness, exacerbation or injury. 10-Not Attempted due to Environmental Limitations-(lack of equipment, weather restraints, etc.). 88-Not Attempted due to Medical Conditions or Safety Concerns. Lying to Sitting/Side of Bed(Q: 4 Sit to Stand (QC): 4 Chair/Rho-xz-Piwev Xfer(QC): 4 Weight Bearing Right Lower Extremity: Right Full Weight Bearing Left Lower Extremity: Left Full Weight Bearing Gait Training Distance: 75' Walk 10 feet (QC): 4 Walk 50 ft with 2 Turns(QC): 4 Walk 150 ft (QC): 88 Gait Assistive Device: FWW very slow, functional gait sequence Assessment SAO2 monitored per RN request, patient on RA with SAO2 remaining 93% RA with activity. RN notified and O2 is left off of patient per RN request. PT Short Term Goals Short Term Goals Time Frame: Feb 24, 2022 Roll Left & Right: 4 Sit to lyin Lying to sitting on side of be: 4 Sit to stand: 4 Chair/gry-zt-qezhu transfer: 4 Walk 10 feet: 3 PT Plan Treatment/Plan Treatment Plan: Continue Plan of Care Treatment Plan: Bed Mobility, Concurrent Therapy, Education, Functional Activity Colt, Functional Strength, Gait, Safety, Therapeutic Exercise, Transfers Treatment Duration: Feb 24, 2022 Frequency: 6 times per week Estimated Hrs Per Day: .25 hour per day Patient and/or Family Agrees t: Yes Time Time In: 915 Time Out: 929 DATE: Feb 19, 2022 Total Billed Treatment Time: 14 Total Billed Treatment 1 visit FA 14 min PASQUALE YEBOAH PT Feb 19, 2022 10:23
[2022-02-19] MEDS ORDERED: MTP25TSR PO (10:30)
[2022-02-19] MEDS ORDERED: ASPI81TA64 PO (10:30)
[2022-02-19] MEDS ORDERED: CEFD300C3 PO (10:30)
--- NOTE | 2022-02-19 10:31 | Discharge Summary ---
Discharge Summary Hospital Course Was the Problem List Reviewed?: Yes Problems/Dx: (1) Pneumonia Status: Acute Qualifiers: Qualified Codes: J18.9 - Pneumonia, unspecified organism (2) NSTEMI (non-ST elevated myocardial infarction) Status: Acute (3) Respiratory failure Status: Acute Qualifiers: Qualified Codes: J96.01 - Acute respiratory failure with hypoxia Hospital Course Date of Admission: Feb 16, 2022 at 12:45 Admission Diagnosis : Family Physician/Provider: Date of Discharge: 02/19/22 Discharge Diagnosis: [ ] Hospital Course: Roxie Partida is an 81 yo female who was admitted to inpatient care on 02/16 for cough, congestion, and respiratory distress with diagnosis of pneumonia and NSTEMI. The patient had right lateral atelectasis vs infiltrate revealed on CXR in the ER, as well as elevated troponin with no ST changes on EKG. Echocardi ogram on 02/17 revealed EF of 55-60% and aortic valve with mild regurgitation. Patient has notable history of dementia and was admitted for administration of ceftriaxone, azithromycin and continued monitoring. The patient at time of discharge states she is feeling well, and she has no complaints of cough or dyspnea. She indicates she has been eating and drinking well, and she has no for urinary symptoms, diarrhea, or constipation. She has no complaints of pain at time of discharge. The patient's son remarks she seems to have increased strength at time of discharge, and she appears overall improved. Physical exam was unremarkable except for established neurological changes secondary to dementia. Labs at time of discharge revealed mild anemia of 9.6 but were o therwise unremarkable. Vital signs are stable. HEYDI SHEA Feb 19, 2022 10:35 Labs and Pending Lab Test: Laboratory Tests 02/18/22 23:29: Glucometer 85 02/19/22 05:05: White Blood Count 6.7, Red Blood Count 3.15L, Hemoglobin 9.6L, Hematocrit 31L, Mean Corpuscular Volume 97, Mean Corpuscular Hemoglobin 31, Mean Corpuscular Hemoglobin Concent 32, Red Cell Distribution Width 13.4, Platelet Count 150, Mean Platelet Volume 13.0H, Immature Granulocyte % (Auto) 0, Neutrophils (%) (Auto) 80H, Lymphocytes (%) (Auto) 11L, Monocytes (%) (Auto) 6, Eosinophils (%) (Auto) 2, Basophils (%) (Auto) 0, Neutrophils # (Auto) 5.4, Lymphocytes # (Auto) 0.8L, Monocytes # (Auto) 0.4, Eosinophils # (Auto) 0.1, Basophils # (Auto) 0.0, Immature Granulocyte # (Auto) 0.0, Sodium Level 138, Potassium Level 3.7, Chloride Level 107, Carbon Dioxide Level 21, Anion Gap 10, Blood Urea Nitrogen 10, Creatinine 0.99, Estimat Glomerular Filtration Rate 57, BUN/Creatinine Ratio 10, Glucose Level 93, Calcium Level 8.7, Corrected Calcium 9.7, Total Bilirubin 0.2, Aspartate Amino Transf (AST/SGOT) 10, Alanine Aminotransferase (ALT/SGPT) 6, Alkaline Phosphatase 53, Total Protein 5.1L, Albumin 2.7L Home Meds Active Cefdinir 300 Mg Capsule 300 Mg PO BID Children's Aspirin (Aspirin) 81 Mg Tab.chew 81 Mg PO DAILY Metoprolol Succinate 25 Mg Tab.er.24h 25 Mg PO DAILY Reported [employer]-Tussin (Dextromethorphan HBr) 15 Mg/5 Ml Syrup 15 Mg PO Q6H PRN Calcium (Calcium Carbonate) 500 Mg Calcium (1250 Mg) Tablet 500 Mg PO DAILY Loratadine 10 Mg Tablet 10 Mg PO 1500 Omeprazole 20 Mg Capsule.dr 20 Mg PO HS Memantine HCl 10 Mg Tablet 10 Mg PO BID Donepezil HCl 10 Mg Tablet 10 Mg PO HS Assessment/Pt Instructions pcp 1 week Discharge Planning: <30 minutes discharge planning Discharge Instructions Discharge Diet: No Restrictions Discharge Physical Examination Vital Signs Vital Signs Date Time Temp Pulse Resp B/P (MAP) Pulse Ox O2 Delivery O2 Flow Rate FiO2 02/19/22 08:00 35.6 72 20 168/79 (108) 93 Nasal Cannula 2.00 General Appearance: No Apparent Distress, WD/WN, Chronically ill Respiratory: Lungs Clear, Normal Breath Sounds Neurologic/Psychiatric: Alert, Disoriented Allergies: Coded Allergies: No Known Drug Allergies (Unverified , 02/16/22) Discharge Summary Date of Admission Feb 16, 2022 at 12:45 Date of Discharge Discharge Date: Feb 19, 2022 Admission Diagnosis Assessment: Acute respiratory failure PNA NSTEMI Dementia HTN Plan: IV abx Nebs O2 Full code Discharge Diagnosis Assessment: Acute respiratory failure PNA NSTEMI Dementia HTN Plan: IV abx Nebs O2 Full code Hep-Lock IV fluid PT and OT tomorrow (1) Pneumonia Status: Acute Qualifiers: Qualified Codes: J18.9 - Pneumonia, unspecified organism (2) NSTEMI (non-ST elevated myocardial infarction) Status: Acute (3) Respiratory failure Status: Acute Qualifiers: Qualified Codes: J96.01 - Acute respiratory failure with hypoxia BHAVNA RICE DO Feb 19, 2022 10:31
--- NOTE | 2022-02-19 10:31 | D/C HH Face to Face Order ---
D/C Face to Face Orders Reconcile Patient Problems Problems Reviewed?: Yes Instructions for Patient Integrity Patient Instructions/FollowUp: PCP 1 week Physician to follow Patient: Joe Discharge Diet for Home: No Restrictions Patient Problems: PNA NSTEMI Patient Data-Allergies,Ht & Wt Patient Allergies: Coded Allergies: No Known Drug Allergies (Unverified , 02/16/22) Home Health Need/Face to Face Date of Face to Face: Feb 19, 2022 Clinical Findings: Generalized weakness and fatigue, Muscle weakness I have seen Pt [id number]: Yes Discharged To: Home Diagnosis/Conditions: PNA Patient is Homebound due to: CognItive deficits, Kenneth fall risk due to ins tabilty, Muscle weakness Homebound Status Due to the above stated illness, injury or surgical procedure (medical condition or diagnosis) and associated clinical findings, the patient is homebound because of his/her inability to leave home except with aid of a supportive device and/or person AND leaving the home requires a considerable and taxing effort or is medically contraindicated. Pt req the following assistanc: Walker Home Health Nursing Orders Home Health Services Order: Nursing Services, Planisher-Evaluate & Treat, Physical Therapy-Evaluate & Treat Home Health Infusion Therapy Line Start Date: Feb 16, 2022 Certify Stmt I certify that this patient is under my care and that I, a nurse practitioner or a physician; a payroll and benefits assistant working with me, had a face to face encounter that - meets the physician face to face encounter requirements with this patient as dated. BHAVNA RICE DO Feb 19, 2022 10:31
[2022-02-19] MEDS: cefTRIAXone 1 GM PRE-MIX 50 ML IV SCH (10:34)
--- NOTE | 2022-02-19 10:35 | Progress Note ---
HEYDI SHEA 02/19/22 1035: Progress Note Roxie Partida is an 81 yo female who was admitted to inpatient care on 02/16 for cough, congestion, and respiratory distress with diagnosis of pneumonia and NSTEMI. The patient had right lateral atelectasis vs infiltrate revealed on CXR in the ER, as well as elevated troponin with no ST changes on EKG. Echo cardiogram on 02/17 revealed EF of 55-60% and aortic valve with mild regurgitation. Patient has notable history of dementia and was admitted for administration of ceftriaxone, azithromycin and continued monitoring. The patient at time of discharge states she is feeling well, and she has no complaints of cough or dyspnea. She indicates she has been eating and drinking well, and she has no for urinary symptoms, diarrhea, or constipation. She has no complaints of pain at time of discharge. The patient's son remarks she seems to have increased strength at time of discharge, and she appears overall improved. Physical exam was unremarkable except for established neurological changes secondary to dementia. Labs at time of discharge revealed mild anemia of 9.6 but were otherwise unremarkable. Vital signs are stable. CRYSTAL RICE DO 02/20/22 0509: Supervisory-Addendum Brief Verification & Attestation Participated in pt care: history, MDM, physical Personally performed: exam, history, MDM, supervision of care Care discussed with: Medical Student Procedures: n/a Results interpretation: Verified all documentation Verification and Attestation of Medical Student E/M Service A medical student performed and documented this service in my presence. I reviewed and verified all information documented by the medical student and made modifications to such information, when appropriate. I personally performed the physical exam and medical decision making. Crystal Rice Feb 20, 2022,05:09 HEYDI SHEA Feb 19, 2022 10:35 CRYSTAL RICE DO Feb 20, 2022 05:09
--- NOTE | 2022-02-19 11:21 | Occupational Therapy Eval ---
OT Evaluation-General/PLF Medical Diagnosis Admission Date Feb 16, 2022 at 12:45 Medical Diagnosis: PNA Onset Date: Feb 17, 2022 Therapy Diagnosis Therapy Diagnosis: n/a Precautions Precautions/Isolations: Standard Precautions Referral Physician: Dr. Patel Referral Reason: Evaluation/Treatment Medical History Pertinent Medical History: Dementia Additional Medical History severe dementia, HTN Current History EMS due to AMS Social History Home: Single Level Current Living Status: Spouse Entry Into Home: Level Entry ADL-Prior Level of Function SCALE: Activities may be completed with or without assistive devices. 0-Vxrbqovxpf-zvpptfv completes the activity by him/herself with no assistance from a helper. 5-Set-up or Clean-up Assistance-helper sets up or cleans up; patient completes activity. [place] assists only prior to or following the activity. 4-Supervision or Touching Assistance-helper provides verbal cues and/or touching/steadying and/or contact guard assistance as patient completes ac tivity. Assistance may be provided throughout the activity or intermittently. 3-Partial/Moderate Assistance-helper does LESS THAN HALF the effort. [place] lifts, holds or supports trunk or limbs, but provides less than half the effort. 2-Substantial/Maximal Assistance-helper does MORE THAN HALF the effort. [place] lifts or holds trunk or limbs and provides more than half the effort. 7-Tkqbpzrvh-tsecbx does ALL the effort. Patient does none of the effort to complete the activity. Or, the assistance of 2 or more helpers is required for the patient to complete the activity. If activity was not attempted, code reason: 7-Patient Refused. 9-Not Applicable-not attempted and the patient did not perform the activity before the current illness, exacerbation or injury. 10-Not Attempted due to Environmental Limitations-(lack of equipment, weather restraints, etc.). 88-Not Attempted due to Medical Conditions or Safety Concerns. ADL PLOF Comments Pt's son is pt's primary caregiver. States he assists her with all ADLs, cues her with walking, and reminds her to drink/eat throughout the day due to pt's dementia. She has a tub/shower with SC, and GBS. GBS located by toilet as well. When pt toileting, son is present and hands her toilet paper and assists as needed. Self Care: Needed Some Help Functional Cognition: Needed Some Help OT Current Status Subjective Pt in recliner, agreeable to OT Tx with encouragement. Pt initially declined toileting, but with encouragement agreeable to completing. Mental Status/Objective Patient Orientation: Person, Confused Attachments: Aparicio Catheter Current Hand Dominance: Right Upper Extremity ROM WFL ADL-Treatment Eating (QC): 3 (Per nursing report, assistance required.) Toileting Hygiene (QC): 3 (Min A with hygiene for thoroughness. MAX VCs.) Other Treatments Pt in recliner, son provided information about PLOF and home set up. Pt used FWW to transfer into bathroom and onto toilet, CGA with VCs for UE placement with transfer. Pt completed toileting, max VCs for sequencing of task. Pt then used FWW to return to recliner, VCs for placement of UEs, pt's son indicates this is pt's PLOF. Post tx, pt in recliner, call light in reach and all needs met. Education OT Patient Education: Correct positioning, Exercise program, Modified ADL techniques, Progress toward Goal/Update tx plan, Purpose of tx/functional activities, Rehab process Teaching Recipient: Patient Teaching Methods: Discussion Response to Teaching: Verbalize Understanding OT Halfway Goals Halfway Goals 1=Demonstrate adherence to instructed precautions during ADL tasks. 2=Patient will verbalize/demonstrate understanding of assistive devices/modifications for ADL. 3=Patient will improve strength/tolerance for activity to enable patient to perform ADL's. OT Education/Plan Problem List/Assessment Assessment: No Skilled OT Needs ID'd No skilled OT Services indicated at this time. Pt is currently at her PLOF with ADLs, son assists with all ADLs at home. D/C from OT at this time. Discharge Recommendations Plan/Recommendations: Discharge/Goals Met Treatment Plan/Plan of Care Patient would benefit from OT for education, treatment and training to promote i ndependence in ADL's, mobility, safety and/or upper extremity function for ADL's. Plan of Care: ADL Retraining, Functional Mobility Treatment Duration: Feb 19, 2022 Frequency: 1 time per week (eval only) Rehab Potential: Poor Time Start Time: 10:45 Stop Time: 11:00 DATE: Feb 19, 2022 Total Time Billed (hr/min): 15 Billed Treatment Time 1, AJ KEATING OT Feb 19, 2022 11:21
[2022-02-19 12:00] VITALS: BP 136/64
--- NOTE | 2022-02-19 12:40 | Progress Note - Cardiology ---
Cardiology SOAP Progress Note Subjective: She has not been reporting any cp or shortness of breath Her son reports that she has been comfortable Objective: I&O/Vital Signs 02/19/22 02/19/22 02/19/22 02/19/22 01:00 03:25 07:22 08:00 Temp 36.6 Pulse 57 62 83 Resp 16 B/P (MAP) 140/84 (102) Pulse Ox 97 O2 Delivery Nasal Cannula Nasal Cannula O2 Flow Rate 3.00 3.00 02/19/22 02/19/22 08:00 12:00 Temp 35.6 36.6 Pulse 72 56 Resp 20 18 B/P (MAP) 168/79 (108) 136/64 (88) Pulse Ox 93 92 O2 Delivery Nasal Cannula Room Air O2 Flow Rate 2.00 02/19/22 00:00 Intake Total 610 ml Balance 610 ml Constitutional: No AAO x 3; well-developed, well-nourished Respiratory: No accessory muscle use; other (fair to good air entry, diminshed at the bases, more so on the R base; R basal coarse crackles) Cardiovascular: regular rate-rhythm, S1 and S2, systolic murmur (soft SAUL at card base) Gastrointestional: No tender; soft; No guarding, No rebound; audible bowel sounds Extremities: No clubbing, No cyanosis, No significant edema Neurologic/Psychiatric: No oriented x 3; other (moves all limb equally) Skin: warm/dry; No cyanosis, No rash on exposed areas, No ulcerations on exposed areas Results/Procedures: Labs Laboratory Tests 02/18/22 23:29: Glucometer 85 02/19/22 05:05: White Blood Count 6.7, Red Blood Count 3.15L, Hemoglobin 9.6L, Hematocrit 31L, Mean Corpuscular Volume 97, Mean Corpuscular Hemoglobin 31, Mean Corpuscular Hemoglobin Concent 32, Red Cell Distribution Width 13.4, Platelet Count 150, Mean Platelet Volume 13.0H, Immature Granulocyte % (Auto) 0, Neutrophils (%) (Auto) 80H, Lymphocytes (%) (Auto) 11L, Monocytes (%) (Auto) 6, Eosinophils (%) (Auto) 2, Basophils (%) (Auto) 0, Neutrophils # (Auto) 5.4, Lymphocytes # (Auto) 0.8L, Monocytes # (Auto) 0.4, Eosinophils # (Auto) 0.1, Basophils # (Auto) 0.0, Immature Granulocyte # (Auto) 0.0, Sodium Level 138, Potassium Level 3.7, Chloride Level 107, Carbon Dioxide Level 21, Anion Gap 10, Blood Urea Nitrogen 10, Creatinine 0.99, Estimat Glomerular Filtration Rate 57, BUN/Creatinine Ratio 10, Glucose Level 93, Calcium Level 8.7, Corrected Calcium 9.7, Total Bilirubin 0.2, Aspartate Amino Transf (AST/SGOT) 10, Alanine Aminotransferase (ALT/SGPT) 6, Alkaline Phosphatase 53, Total Protein 5.1L, Albumin 2.7L Laboratory Tests 02/18/22 05:35 02/19/22 05:05 A/P: Assessment: Ac resp failure and hypoxia due to RLL pneumonia - echo on 02/17/22: LVEF 55-60%, mild AI Mild troponin elevation due to type 2 ID due to hypoxia Alzheimer's dementia Hypokalemia - resolved Anemia of undetermined etiology - managed by the Hospitalist svce Plan: * Management of pneumonia and anemia is by the Medical services * Monitor labs - replace electrolytes as indicated RUT BURNETTE MD FACP FAC CCDS Feb 19, 2022 12:40
== END 2022-02-19 15:45 | disposition home or self-care (01) | DRG 280 ==
LOC: ER FS 09:59 → EDSEX 09:59 → 4TH 12:45
PROVIDERS: ADMIT Internal Medicine; ATTEND Internal Medicine
DX: I21.A1 Myocardial infarction type 2 (principal); J18.9 Pneumonia, unspecified organism; J96.01 Acute respiratory failure with hypoxia; I10 Essential (primary) hypertension; G30.9 Alzheimer's disease, unspecified; F02.80 Dementia in other diseases classified elsewhere, unspecified severity, without behavioral disturbance, psychotic disturbance, mood disturbance, and anxiety; E87.6 Hypokalemia; D64.9 Anemia, unspecified; Z20.822 Contact with and (suspected) exposure to COVID-19
CPT/HCPCS: 36415; 71045; 80053; 80061; 82947; 83735; 83880; 84484; 85007; 85025; 85027; 85610; 85730; 87636; 93005; 93306; 94760; 94761

== ENCOUNTER → 2022-02-26 | Outpatient (CLI) | payer MEDICARE ==
[~2022-02-26] MED LIST: ASPI81TA64 PO; CALC-823 PO; CEFD300C3 PO; DEXT15SY PO; DONE10TA41 PO; LORA10TA7 PO; MEMA10TA57 PO; MTP25TSR PO; OMEP20CA18 PO
--- NOTE | 2022-02-26 15:19 | Diagnostic Imaging Report ---
INDICATION: PNEUMONIA COMPARISON: 02/16/2022 FINDINGS: Frontal and lateral views of the chest demonstrate normal heart size and pulmonary vascularity. The lungs are clear. There are no signs of infiltrate, pleural effusions or pneumothoraces. The visualized osseous structures show no acute abnormalities. IMPRESSION: 1. No acute process. No signs of infiltrates, effusions or pneumothoraces. Dictated by: Dictated on workstation # [id number]
== END ==
LOC: RAD FS 14:45
PROVIDERS: ATTEND Family Medicine
DX: J18.9 Pneumonia, unspecified organism (principal)
CPT/HCPCS: 71046

== ENCOUNTER 2023-01-26 17:51 | Emergency (ER) | payer MEDICARE ==
[~2023-01-26] VITALS: Ht 162 cm; Wt 87.0 kg
--- NOTE | 2023-01-26 17:59 | ED Fall/Injury ---
General Chief Complaint: Trauma-Non Activation Stated Complaint: FALL History of Present Illness Date Seen by Provider: Jan 26, 2023 Time Seen by Provider: 17:55 Initial Comments 82-year-old female with PMH of dementia and extensive memory loss, is here because she had a fall yesterday at home after she lost balance, resulting in left knee swelling and bruising as well as bruising to the left side of her forehead. Family was concerned because she is on Eliquis and the bruising seems extensive. Patient is unable to to contribute to a history. No loss of consciousness after a fall. Allergies and Home Medications Allergies Coded Allergies: No Known Drug Allergies (Unverified , 02/16/22) Patient Home Medication List Home Medication List Reviewed: Yes Aspirin (Children's Aspirin) 81 Mg Tab.chew, 81 MG PO DAILY Prescribed by: BHAVNA RICE on 02/19/22 1030 Calcium Carbonate (Calcium) 500 Mg Calcium (1250 Mg) Tablet, 500 MG PO DAILY, (Reported) Entered as Reported by: ALBERTO GARCIA on 02/16/22 155 Cefdinir (Cefdinir) 300 Mg Capsule, 300 MG PO BID Prescribed by: BHAVNA RICE on 02/19/22 1030 Dextromethorphan HBr (Wal-Tussin) 15 Mg/5 Ml Syrup, 15 MG PO Q6H PRN for COUGH, (Reported) Entered as Reported by: ALBERTO GARCIA on 02/16/22 155 Donepezil HCl (Donepezil HCl) 10 Mg Tablet, 10 MG PO HS, (Reported) Entered as Reported by: ALBERTO GARCIA on 02/16/22 155 Loratadine (Loratadine) 10 Mg Tablet, 10 MG PO 1500, (Reported) Entered as Reported by: ALBERTO GARCIA on 02/16/22 155 Memantine HCl (Memantine HCl) 10 Mg Tablet, 10 MG PO BID, (Reported) Entered as Reported by: ALBERTO GARCIA on 02/16/22 155 Metoprolol Succinate (Metoprolol Succinate) 25 Mg Tab.er.24h, 25 MG PO DAILY Prescribed by: BHAVNA RICE on 02/19/22 1030 Omeprazole (Omeprazole) 20 Mg Capsule.dr, 20 MG PO HS, (Reported) Entered as Reported by: ALBERTO GARCIA on 02/16/22 1559 Review of Systems Review of Systems Constitutional: no symptoms reported Musculoskeletal: joint swelling, other Skin: see HPI Past Xhrnxxi-Cyyksl-Ivpyne Hx Immunizations Up To Date First/Initial COVID19 Vaccinat: Yes Past Medical History Surgery/Hospitalization HX: HTN; GERD; Rheumatoid arthritis; CKD stage 3; Osteoarthritis; Alzheimers disease Surgeries: No Hypertension Dementia Physical Exam Vital Signs Vital Signs - First Documented 01/26/23 17:55 Temp 36.6 Pulse 72 Resp 18 B/P (MAP) 136/46 (76) Pulse Ox 96 O2 Delivery Room Air Capillary Refill : Height, Weight, BMI Height: '" Weight: lbs. oz. kg; 34.03 BMI Method: General Appearance: WD/WN, no apparent distress Neck: non-tender, full range of motion, supple, normal inspection Extremities: other (Left knee shows swelling and bruising which extends into the anterior villalobos and stops just above her ankle. N/V bundle intact. -Knee contusion with hematoma which is extravasating down her lateral leg) Neurologic/Psychiatric: alert, other (Patient has dementia is not all oriented, which is her baseline) Skin: normal color Progress/Results/Core Measures Results/Orders My Orders Orders - RONIT DELGADO MD Knee 3 View Right (01/26/23 17:59) Ct Head Wo (01/26/23 17:59) Knee 3 View Left (01/26/23 18:41) Vital Signs/I&O 01/26/23 17:55 Temp 36.6 Pulse 72 Resp 18 B/P (MAP) 136/46 (76) Pulse Ox 96 O2 Delivery Room Air Progress Progress Note : Progress Note 1. FALL: LEFT KNEE CONTUSION / LEFT FOREHEAD CONTUSION: - CT HEAD: no acute findings - XR LEFT & RIGHT KNEE: no acute findings - Tylenol 1000mg STAT - Ice application advised - Tylenol as needed for pain - Keep leg elevated - Stop Eliquis today and tomorrow, and then call Dr Pacheco's office on Saturday morning for further guidance regarding when to resume Eliquis. Follow up with PCP within one week. - If swelling spreads and worsens, becoming hard throughout, or pt develops fever, go to ER immediately. -The patient was seen in the ED, and treated appropriately to presentation at a specific point in time. Patient's family is informed that there is a possibility that disease and illness can evolve and change in acuity rapidly or slowly after patient is discharged from the ER. Precautionary advice given to the patient's family for immediate return to ER if symptoms worsen or do not resolve, and to seek emergency care sooner rather than later. Also advised on the importance of PCP follow up and compliance with management and follow up plan with PCP and/or specialist, as this is part of the management plan. Family verbally expressed understanding. Diagnostic Imaging Diagonstic Imaging: Xray, CT Plain Films/CT/US/NM/MRI: knee, head Comments [facility], [place] NAME: [facility] REC#: [id number] PT STATUS: REG ER : 1940 PHYSICIAN: RONIT DELGADO MD ADMIT DATE: 01/26/23/ER FS Signed Date of Exam:01/26/23 KNEE 3 VIEW RIGHT EXAMINATION: Right knee radiographs. EXAM DATE: 01/26/2023 6:24 PM. COMPARISON: None available. HISTORY: Right knee pain after fall. TECHNIQUE: 3 views. FINDINGS: There is no acute fracture, dislocation, or destructive osseous process. There is mild medial compartment joint space narrowing with small osteophytes. The soft tissues are normal. IMPRESSION: Degenerative changes of the right knee without acute osseous abnormality. Dictated by: Dictated on workstation # [id number] Dict: 01/26/231830 Trans: 01/26/231834 [id number] Interpreted by: MARYLU TARIQ DO Electronically signed by: MARYLU TARIQ DO 01/26/231834 [facility], [place] NAME: [facility] REC#: [id number] PT STATUS: REG ER : 1940 PHYSICIAN: RONIT DELGADO MD ADMIT DATE: 01/26/23/ER FS Draft Date of Exam:01/26/23 KNEE 3 VIEW LEFT EXAMINATION: Left knee radiographs. EXAM DATE: 01/26/2023 6:55 PM. COMPARISON: None available. HISTORY: Left knee pain. TECHNIQUE: 3 views. FINDINGS: There is no acute fracture, dislocation, or destructive osseous process. There is moderate medial compartment and mild lateral compartment joint space narrowing with small osteophytes. The soft tissues are normal. IMPRESSION: Degenerative changes of the left knee without acute osseous abnormality. Dictated on workstation # [id number] Dict: 01/26/231854 Trans: 01/26/231857 DEMETRICE [id number] Interpreted by: MARYLU TARIQ DO Electronically signed by: [facility] [place] NAME: WANDER LOPEZ I [facility] REC#: [id number] PT STATUS: REG ER : 1940 PHYSICIAN: RONIT DELGADO MD ADMIT DATE: 01/26/23/ER FS Signed Date of Exam:01/26/23 CT HEAD WO EXAMINATION: CT head without contrast. TECHNIQUE: Multiple contiguous axial images were obtained through the brain without the use of intravenous contrast. All CT scans use one or more of the following dose optimizing techniques: automated exposure control, MA and/or KvP adjustment based on patient size and exam type or iterative reconstruction. HISTORY: Head pain after fall. COMPARISON: None available. FINDINGS: Mild diffuse cerebral volume loss with proportional enlargement of the ventricles and sulci. No abnormal attenuation of brain parenchyma is present. No acute intracranial hemorrhage or abnormal extra-axial fluid collections are present. Calcification of the intracranial ICAs. No hyperdense vessel. The calvarium is intact. The mastoid air cells are clear. The visualized paranasal sinuses are clear. The orbits are normal. IMPRESSION: 1. No acute intracranial abnormality. 2. Mild volume loss. Dictated by: Dictated on workstation # [id number] Dict: 01/26/231828 Trans: 01/26/231834 DEMETRICE [id number] Interpreted by: MARYLU TARIQ DO Electronically signed by: MARYLU TARIQ DO 01/26/231834 Departure Impression Primary Impression: Contusion of left knee and lower leg Additional Impressions: Contusion of forehead Fall Disposition: 01 HOME, SELF-CARE Condition: Stable Departure-Patient Inst. Referrals: CARLITA PACHECO MD (PCP/Family) Primary Care Physician Patient Instructions: Preventing Falls ED, Contusion (DC) Add. Discharge Instructions: - Ice application advised - Tylenol as needed for pain - Keep leg elevated - Stop Eliquis today and tomorrow, and then call Dr Pacheco's office on Saturday for further guidance regarding when to resume Eliquis. Follow up with PCP within one week. - If swelling spreads and worsens, becoming hard throughout, or pt develops fever, go to ER immediately. All discharge instructions reviewed with patient and/or family. Voiced understanding. RONIT DELGADO MD Jan 26, 2023 17:59
--- NOTE | 2023-01-26 18:32 | Diagnostic Imaging Report ---
EXAMINATION: CT head without contrast. TECHNIQUE: Multiple contiguous axial images were obtained through the brain without the use of intravenous contrast. All CT scans use one or more of the following dose optimizing techniques: automated exposure control, MA and/or KvP adjustment based on patient size and exam type or iterative reconstruction. HISTORY: Head pain after fall. COMPARISON: None available. FINDINGS: Mild diffuse cerebral volume loss with proportional enlargement of the ventricles and sulci. No abnormal attenuation of brain parenchyma is present. No acute intracranial hemorrhage or abnormal extra-axial fluid collections are present. Calcification of the intracranial ICAs. No hyperdense vessel. The calvarium is intact. The mastoid air cells are clear. The visualized paranasal sinuses are clear. The orbits are normal. IMPRESSION: 1. No acute intracranial abnormality. 2. Mild volume loss. Dictated by: Dictated on workstation # [id number]
--- NOTE | 2023-01-26 18:33 | Diagnostic Imaging Report ---
EXAMINATION: Right knee radiographs. EXAM DATE: 01/26/2023 6:24 PM. COMPARISON: None available. HISTORY: Right knee pain after fall. TECHNIQUE: 3 views. FINDINGS: There is no acute fracture, dislocation, or destructive osseous process. There is mild medial compartment joint space narrowing with small osteophytes. The soft tissues are normal. IMPRESSION: Degenerative changes of the right knee without acute osseous abnormality. Dictated by: Dictated on workstation # [id number]
--- NOTE | 2023-01-26 18:59 | Diagnostic Imaging Report ---
EXAMINATION: Left knee radiographs. EXAM DATE: 01/26/2023 6:55 PM. COMPARISON: None available. HISTORY: Left knee pain. TECHNIQUE: 3 views. FINDINGS: There is no acute fracture, dislocation, or destructive osseous process. There is moderate medial compartment and mild lateral compartment joint space narrowing with small osteophytes. The soft tissues are normal. IMPRESSION: Degenerative changes of the left knee without acute osseous abnormality. Dictated by: Dictated on workstation # [id number]
[2023-01-26] MEDS ORDERED: ACETAMINOPHEN 500 MG TABLET PO ONE (19:30)
[2023-01-26] MEDS ORDERED: ACETAMINOPHEN 500 MG TABLET ONE (19:31)
[2023-01-26 19:43] VITALS: BP 131/54
== END 2023-01-26 19:43 | disposition home or self-care (01) ==
LOC: EDUNIT# 17:51 → ER FS 17:53
DX: S00.83XA Contusion of other part of head, initial encounter (principal); S80.02XA Contusion of left knee, initial encounter; F03.90 Unspecified dementia, unspecified severity, without behavioral disturbance, psychotic disturbance, mood disturbance, and anxiety; Z79.01 Long term (current) use of anticoagulants; W19.XXXA Unspecified fall, initial encounter; Y92.002 Bathroom of unspecified non-institutional (private) residence as the place of occurrence of the external cause
CPT/HCPCS: 70450; 73562